=== PATIENT | female | born 1955 | race Caucasian/White ===

== ENCOUNTER → 2017-11-27 | Emergency (ER) | payer OTHER ==
[~2017-11-27] VITALS: Ht 175.3 cm; Wt 68.0 kg
[~2017-11-27] MED LIST: GABAPENTIN100 MG; HYDROXYCHLOROQ200 MG; LANTUS SOL100 UNIT/1; LEVO-T137 MCG; PROPRANOLOL HCL20 MG
== END | disposition home or self-care (01) ==
LOC: ER 17:23
DX: R19.7 Diarrhea, unspecified (principal)